=== PATIENT | male | born 2000 | race Caucasian/White ===

== ENCOUNTER 2023-05-07 08:33 | Emergency (ER) | payer OTHER ==
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
[2023-05-07] MEDS ORDERED: IBUPROFEN 600 MG TABLET PO STA (09:34)
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
[2023-05-07 11:43] VITALS: BP 122/80; O2SAT 99
== END 2023-05-07 11:40 | disposition home or self-care (01) ==
LOC: ED 08:33
DX: S16.1XXA Strain of muscle, fascia and tendon at neck level, initial encounter (principal); S09.90XA Unspecified injury of head, initial encounter; R51.9 Headache, unspecified; V89.2XXA Person injured in unspecified motor-vehicle accident, traffic, initial encounter; Y93.89 Activity, other specified; Y92.410 Unspecified street and highway as the place of occurrence of the external cause
CPT/HCPCS: 70450; 72125; 99283; 99284; A9270